=== PATIENT | male | born 1980 | race Caucasian/White ===

== ENCOUNTER 2024-05-24 09:09 | Emergency (ER) | payer BC ==
[2024-05-24] MEDS: Albuterol/Ipratropium 3.0-0.5 MG/3 ML Neb Soln NEB ONE (09:18)
[2024-05-24] MEDS: Albuterol/Ipratropium 3.0-0.5 MG/3 ML Neb Soln ONE (10:08)
[2024-05-24] MEDS: Cetirizine 10 MG Tab PO ONE (10:09)
[2024-05-24] MEDS: Fluticasone NASAL Spray 16 GM Bottle NASBOTH STA (10:09)
== END 2024-05-24 11:18 | disposition home or self-care (01) ==
LOC: JP.ED 09:09
DX: T78.40XA Allergy, unspecified, initial encounter (principal); Z79.51 Long term (current) use of inhaled steroids
CPT/HCPCS: 94640; 99284; A9270; J7620